=== PATIENT | female | born 1985 | race Caucasian/White ===

== ENCOUNTER 2024-02-15 18:21 | Emergency (ER) | payer SELFPAY ==
[~2024-02-15] VITALS: Ht 162.6 cm; Wt 84.6 kg
[2024-02-15] MEDS ORDERED: MULTTAB20 PO (18:30)
[2024-02-15] MEDS: NS 1,000 ML IV ONE ×2 (20:16→22:13)
[2024-02-15 20:25] LABS: BASO % 0.1 % (0.0-1.0); HEMATOCRIT 35.2 % (36.0-47.0); HEMOGLOBIN 12.1 g/dl (12.0-15.5); LYMPH # 0.8 10^3/uL (1.5-5.0); LYMPH % 7.5 % (24.0-44.0); MEAN CORPUSCULAR HEMOGLOBIN 28.2 pg (27.0-33.0); MEAN CORPUSCULAR HGB CONC 34.4 g/dl (32.0-36.5); MEAN CORPUSCULAR VOLUME 82.1 fl (80.0-96.0); MONO # 0.8 10^3/uL (0.0-0.8); MONO % 7.6 % (2.0-8.0); NEUTROPHILS # 8.7 10^3/uL (1.5-8.5); NEUTROPHILS % 84.2 % (36.0-66.0); PLATELET COUNT, AUTOMATED 117 10^3/uL (150-450); RED BLOOD COUNT 4.29 10^6/uL (4.00-5.40); WHITE BLOOD COUNT 10.3 10^3/uL (4.0-10.0)
[2024-02-15] MEDS: METOCLOPRAMIDE INJ 10MG/2ML VIAL IV ONE (20:33)
[2024-02-15 20:47] LABS: HCG, SERUM QUALITATIVE POSITIVE (NEGATIVE)
[2024-02-15 20:57] LABS: LIPASE 24 U/L (12-53)
[2024-02-15 21:31] LABS: CK-MB VALUE MASS < 1.0 NG/ML (<3.6)
[2024-02-15 21:32] LABS: ALBUMIN 2.5 G/DL (3.2-5.2); ALKALINE PHOSPHATASE 66 U/L (46-116); ALT/SGPT < 9 U/L (7.0-40); AST/SGOT 9 U/L (<34); BILIRUBIN,DIRECT 0.1 MG/DL (<0.4); BILIRUBIN,TOTAL 0.4 MG/DL (0.3-1.2); CPK CREATINE PHOSPHOKINASE 29 U/L (34-145); MAGNESIUM LEVEL 1.6 MG/DL (1.8-2.4); MB/CK RELATIVE INDEX 3.44 (< OR =4); TOTAL PROTEIN 5.9 G/DL (5.7-8.2)
[2024-02-15] MEDS: KCL 10MEQ/100ML SWI (KRUN) 10 MEQ in IV 1 EA IV ONE (22:16)
[2024-02-15] MEDS: POTASSIUM CHLORIDE 10MEQ SR TABLET PO ONE (22:17)
[2024-02-15] MEDS ORDERED: ACETAMINOPHEN *IV* 1,000 MG in IV 1 EA IV ONE (22:55)
[2024-02-15] MEDS: ACETAMINOPHEN 500 MG TAB PO ONE (23:47)
[2024-02-16] VITALS: BP 106/61; TEMP 99.1; O2SAT 96
[2024-02-16] MEDS ORDERED: REGL5TAB2 PO (02:25)
[2024-02-16] MEDS ORDERED: OSEL75CA PO (02:25)
[2024-02-16] MEDS ORDERED: CEPH500C PO (03:14)
[2024-02-16] MEDS: CEPHALEXIN 500 MG CAP PO ONE (03:34)
== END 2024-02-16 03:58 | disposition home or self-care (01) ==
LOC: M ED 18:21
DX: O98.512 Other viral diseases complicating pregnancy, second trimester (principal); J10.1 Influenza due to other identified influenza virus with other respiratory manifestations; O99.282 Endocrine, nutritional and metabolic diseases complicating pregnancy, second trimester; E87.6 Hypokalemia; E83.42 Hypomagnesemia; O98.812 Other maternal infectious and parasitic diseases complicating pregnancy, second trimester; Z3A.13 13 weeks gestation of pregnancy
CPT/HCPCS: 76801; 80047; 80076; 81001; 82550; 82553; 83690; 83735; 84132; 84484; 84702; 84703; 85025; 87086; 93005; 93041; 94760; 96361; 96365; 96366; 96375; 99285; J2765